=== PATIENT | female | born 1930 | race African-American/Black ===

== ENCOUNTER 2017-12-04 06:57 | Outpatient (CLI) | payer MEDICARE ==
[2017-12-04] MEDS ORDERED: ISOVUE-370 76%-LOCM 1 ML ONE (15:18)
== END 2017-12-04 06:58 | disposition home or self-care (01) ==
LOC: BICCT 06:57
PROVIDERS: ATTEND Internal Medicine
DX: R59.0 Localized enlarged lymph nodes (principal); J34.89 Other specified disorders of nose and nasal sinuses
CPT/HCPCS: 70491; 82565

== ENCOUNTER 2017-12-22 07:11 | Outpatient (CLI) | payer MEDICARE | END 2017-12-22 07:12 | disposition home or self-care (01) | LOC: BICRAD 07:11 | PROVIDERS: ATTEND Internal Medicine | DX: R59.0 Localized enlarged lymph nodes (principal); J44.9 Chronic obstructive pulmonary disease, unspecified; I51.7 Cardiomegaly | CPT/HCPCS: 71046 ==

== ENCOUNTER 2018-12-15 10:58 | Emergency (ER) | payer MEDICARE ==
--- NOTE | 2018-12-15 11:38 | RAD ---
XR Hip Rt 2-3 View History: Pain after fall Comparison: None. Findings: No acute fracture or malalignment of the right femoral head and neck. Cortical regularity o f the right superior pubic ramus. Impression: Subtle cortical irregularity of the right superior pubic ramus on the oblique view. Pelvi c radiograph recommended.
--- NOTE | 2018-12-15 12:08 | CT ---
EXAM: CT Pelvis WO Con DATE: 12/15/2018 11:42 AM INDICATION: Fall with right hip pain COMPARISON: Right hip radiograph dated December 15, 2018 FINDING: There is a nondisplaced right inferior pubic ramus fracture. No additional acute pelvic fra cture is evident. There is diffuse osteopenia. There is scattered degenerative change involving both hips and SI joints. There are small scattered bone islands seen within the pelvis. Intrapelvic c ontents demonstrates scattered colonic diverticula. Visualized bladder, rectum and perirectal soft tissues are within normal limits. There are moderate to severe calcifications involving the pelvic va sculature. There is a fat-containing umbilical hernia. IMPRESSION:Nondisplaced right inferior pubic ramus fracture. No additional disc displaced fractures e vident.
== END 2018-12-15 12:50 | disposition home or self-care (01) ==
LOC: ERS 10:58
DX: S32.591A Other specified fracture of right pubis, initial encounter for closed fracture (principal); E78.5 Hyperlipidemia, unspecified; I10 Essential (primary) hypertension; W18.30XA Fall on same level, unspecified, initial encounter
CPT/HCPCS: 72192

== ENCOUNTER 2020-05-10 17:41 | Inpatient (IN) | payer MEDICARE ==
[2020-05-10 18:44] LABS: #Eosinphils 0.1 thou/uL (0.0-0.7); #Lymphocytes 1.6 thou/uL (1.20-3.40); #Monocytes 0.9 thou/uL (0.11-0.59); #Neutrophils 5.2 thou/uL (1.40-6.50); %Basophils 0.2 % (0.0-1.0); %Lymphocytes 20.6 % (21.0-51.0); %Monocytes 11.1 % (0.0-10.0); %Neutrophils 67.1 % (42.0-75.0); Mean Corpuscular HGB CONC 33.1 g/dL (32.0-36.0); Mean Corpuscular Hemoglobin 32.6 pg (27.0-31.0); Mean Corpuscular Volume 98.4 fL (78.0-98.0); Mean Platelet Volume 7.2 fL (7.4-10.4); Platelet Count 300 thou/uL (130-400); RBC Distribution Width 13.3 % (11.5-14.5); Red Blood Cell (RBC) Count 3.38 mill/uL (4.20-5.40); White Blood Cell (WBC) Count 7.7 thou/uL (4.8-10.8)
[2020-05-10 19:32] LABS: Albumin 3.7 g/dL (3.4-4.8)
[2020-05-10 19:34] LABS: Calcium 8.5 mg/dL (7.8-10.44); Chloride 102 mmol/L (98-107); Potassium 3.5 mmol/L (3.5-5.1); Sodium 139 mmol/L (136-145)
[2020-05-10 19:35] LABS: Globulin 2.9 g/dL (2.4-3.5); Glucose 150 mg/dL (83-110); Protein, Total 6.6 g/dL (6.0-8.3)
[2020-05-10 19:36] LABS: Anion Gap 17 mmol/L (10-20); Carbon Dioxide 24 mmol/L (23-31)
[2020-05-10 19:37] LABS: Bilirubin, Total 0.4 mg/dL (0.2-1.2)
[2020-05-10 19:38] LABS: Alkaline Phosphatase 63 U/L (40-110); Calc. Creatinine Clearance 0 mL/min (70-130)
[2020-05-10 19:39] LABS: BUN (Urea Nitrogen) 24 mg/dL (9.8-20.1)
[2020-05-10 19:40] LABS: AST (SGOT) 17 U/L (5-34)
[2020-05-10 19:41] LABS: ALT (SGPT) 8 U/L (8-55)
--- NOTE | 2020-05-10 20:05 | CT ---
Head CT without contrast 05/10/2020: COMPARISON: 05/20/2015 HISTORY: Syncope TECHNIQUE: Axial CT imaging at 5 mm intervals from vertex through skull base without contrast FINDINGS: There is partial opacification of the right maxillary sinus with secretions of various dens ity. The imaged paranasal sinuses and mastoid air cells appear grossly unremarkable otherwise. There is no displaced calvarial fracture, intracranial hemorrhage, midline shift, or mass effect. The re is periventricular and deep white matter hypodensity, evidence of small vessel disease. No intracranial hemorrhage, midline shift,, or mass effect. IMPRESSION: Small vessel disease with no evidence for intracranial hemorrhage or displaced calvarial fracture.
[2020-05-10 21:28] LABS: Bacteria/HPF 4+ HPF (None Seen); Bilirubin Negative (Negative); Blood, Urine 2+ (Negative); Clarity Extra Turbid (Clear); Glucose, Urine (Dipstick) Normal (Negative); Ketone, Urine Negative (Negative); Leukocyte 500 Leu/uL (Negative); Nitrite 1+ (Negative); Protein, Urine (Dipstick) 10 mg/dL (Neg-Trace); Specific Gravity, Urine 1.013 (1.002-1.036); Urobilinogen Normal mg/dL (Less than 2); WBC/HPF 21-50 HPF (0-3); pH, Urine 6.5 (5.0-9.0)
[2020-05-10 21:52] LABS: Troponin I Less than 0.010 ng/mL (< 0.028)
[2020-05-10 23:45] VITALS: BMI 25.4
[2020-05-11] MEDS ORDERED: hydrALAZINE 20 MG/ML VIAL SLOW IVP PRN (01:04)
[2020-05-11] MEDS ORDERED: Promethazine HCl 12.5 MG in Sodium Chloride 0.9% 50 ML IVPB PRN (01:04)
[2020-05-11] MEDS ORDERED: Guaifenesin DM 100-10/5 ML UDCUP PO PRN (01:04)
[2020-05-11] MEDS ORDERED: Ondansetron PF 4 MG/2 ML Vial IVP PRN (01:04)
[2020-05-11] MEDS ORDERED: Labetalol HCl 100 MG/20 ML VIAL SLOW IVP PRN (01:04)
[2020-05-11] MEDS ORDERED: cloNIDine 0.1 MG TAB PO PRN (01:04)
[2020-05-11] MEDS ORDERED: HYDROcodone/Acetaminophen 5/325 mg Tablet PO PRN (01:04)
[2020-05-11] MEDS ORDERED: Acetaminophen 325 MG TAB PO PRN (01:04)
[2020-05-11] MEDS ORDERED: Dextrose 50% Abboject 50 ML SYRINGE SLOW IVP PRN (01:07)
[2020-05-11] MEDS ORDERED: HumaLOG 300 UNITS/3 ML VIAL SC PRN (01:07)
[2020-05-11] MEDS ORDERED: Dextrose 5% in Water 1,000 ML IV PRN (01:07)
--- NOTE | 2020-05-11 01:10 | PDOC.HHP ---
Hospitalist HPI - History of Present Illness Presyncope History of Present Illness: Patient is an 89 year old female with PMH HTN, HLD, atrial fibrillation who presents to ED for presyncopal episode at home. She reports dizziness and almost losing consciousness after using restroom. She has history of afib and sees Dr De La Cruz, takes diltiazem amongst other medications. In ED, vitals significant for HR in 50s, EKG w/ afib. slow response in 50s. Patient labs unremarkable. patient denies any further symptoms, no chest pain/shortness of breath/dizziness. patient to be admitted for syncope and bradycardia workup. Of note, UA positive in ED. CT head negative for acute IC process. Hospitalist ROS - Review of Systems Constitutional: reports: weakness, malaise. denies: fever, chills, sweats, other Eyes: denies: pain, vision change, conjunctivae inflammation, eyelid inflammation, redness, other ENT: denies: ear pain, ear discharge, nose pain, nose discharge, nose congestion, mouth pain, mouth swelling, throat pain, throat swelling, other Respiratory: denies: cough, dry, shortness of breath, hemoptysis, SOB with excertion, pleuritic pain, sputum, wheezing, other Cardiovascular: denies: chest pain, palpitations, orthopnea, paroxysmal noc. dyspnea, edema, light headedness, other Gastrointestinal: denies: nausea, vomiting, abdominal pain, diarrhea, constipation, melena, hematochezia, other Genitourinary: denies: dysuria, frequency, incontinence, hematuria, retention, other Musculoskeletal: denies: neck pain, shoulder pain, arm pain, back pain, hand eileen n, leg pain, foot pain, other Skin: denies: rash, lesions, jaswant, bruising, other Neurological: denies: weakness, numbness, incoordination, change in speech, confusion, seizures, other All other systems reviewed; all pertinent +/- noted in HPI/Subj - Medication Medications: VITAL SIGNS FriMay 10, 2020 17:56 NILSON [place] BP: 124/64 Pulse: 59 Resp: 19 Temp: 98.7 (Oral) Pain: 0 O2 sat: 98 on (Room Air) Time: 05/10/2020 17:56. Hospitalist History - Past Medical History Other Medical History: HTN, HLD, atrial fibrillation - Past Surgical History Past Surgical History: reports: no pertinent history - Family History Family History: reports: no pertinent history - Social History Smoking Status: Never smoker Alcohol: reports: None Drugs: reports: none - Exam General Appearance: NAD, awake alert Eye: PERRL, anicteric sclera ENT: normocephalic atraumatic, no oropharyngeal lesions, moist mucosa Neck: supple, symmetric, no JVD, no thyromegaly, no lymphadenopathy, no carotid bruit Heart: RRR, no murmur, no gallops, no rubs, normal peripheral pulses Respiratory: CTAB, no wheezes, no rales, no ronchi, normal chest expansion, no tachypnea, normal percussion Gastrointestinal: soft, non-tender, non-distended, normal bowel sounds, no palpable masses, no hepatomegaly, no splenomegaly, no bruit Extremities: no cyanosis, no clubbing, no edema Skin: normal turgor, no lesions, no rashes Neurological: cranial nerve grossly intact, normal sensation to touch, no weakness, no focal deficits, no new deficit Musculoskeletal: normal tone, normal strength, no muscle wasting Psychiatric: normal affect, normal behavior, A&O x 3 Hospitalist Results - Labs Result Diagrams: 05/10/20 18:10 05/10/20 18:10 Lab results: WBC 7.7 thou/uL (4.8-10.8) 05/10/20 18:10 Hgb 11.0 g/dL (12.0-16.0) L 05/10/20 18:10 Hct 33.2 % (36.0-47.0) L 05/10/20 18:10 MCV 98.4 fL (78.0-98.0) H 05/10/20 18:10 Plt Count 300 thou/uL (130-400) 05/10/20 18:10 Neutrophils % 67.1 % (42.0-75.0) 05/10/20 18:10 Sodium 139 mmol/L (136-145) 05/10/20 18:10 Potassium 3.5 mmol/L (3.5-5.1) 05/10/20 18:10 Chloride 102 mmol/L (98-107) 05/10/20 18:10 Carbon Dioxide 24 mmol/L (23-31) 05/10/20 18:10 BUN 24 mg/dL (9.8-20.1) H 05/10/20 18:10 Creatinine 1.29 mg/dL (0.6-1.1) H 05/10/20 18:10 Glucose 150 mg/dL (83-110) H 05/10/20 18:10 Calcium 8.5 mg/dL (7.8-10.44) 05/10/20 18:10 Total Bilirubin 0.4 mg/dL (0.2-1.2) 05/10/20 18:10 AST 17 U/L (5-34) 05/10/20 18:10 ALT 8 U/L (8-55) 05/10/20 18:10 Alkaline Phosphatase 63 U/L (40-110) 05/10/20 18:10 Troponin I Less than 0.010 ng/mL (< 0.028) 05/10/20 21:08 B-Natriuretic Peptide 262.9 pg/mL (0-100) H 05/10/20 18:10 Serum Total Protein 6.6 g/dL (6.0-8.3) 05/10/20 18:10 Albumin 3.7 g/dL (3.4-4.8) 05/10/20 18:10 Urine Ketones Negative mg/dL (Negative) 05/10/20 21:04 Urine Blood 2+ (Negative) A 05/10/20 21:04 Urine Nitrite 1+ (Negative) A 05/10/20 21:04 Ur Leukocyte Esterase 500 Shimon/uL (Negative) A 05/10/20 21:04 Urine RBC 11-20 HPF (0-3) A 05/10/20 21:04 Urine WBC 21-50 HPF (0-3) A 05/10/20 21:04 Ur Squamous Epith Cells 4-6 HPF (0-3) A 05/10/20 21:04 Urine Bacteria 4+ HPF (None Seen) A 05/10/20 21:04 Additional comment: CT Brain WO Con Observe DT: Wed May 10, 2020 19:[address] without contrast 05/10/2020: COMPARISON: 05/20/2015 HISTORY: Syncope TECHNIQUE: Axial CT imaging at 5 mm intervals from vertex through skull base without contrast FINDINGS: There is partial opacification of the right maxillary sinus with secretions of various dens ity. The imaged paranasal sinuses and mastoid air cells appear grossly unremarkable otherwise. There is no displaced calvarial fracture, intracranial hemorrhage, midline shift, or mass effect. The re is periventricular and deep white matter hypodensity, evidence of small vessel disease. No intracranial hemorrhage, midline shift,, or mass effect. IMPRESSION: Small vessel disease with no evidence for intracranial hemorrhage or displaced calvarial fracture. - EKG Interpretation EK LEAD EKG INTERPRETATION Heart rate 53 QTc 420 atrial fibrillation with slow response no evidence of Mobitz however evidence of high-grade interventricular block. I personally reviewed and agree with ED physician interpretation Hospitalist H&P A/P - Plan Plan: Patient is an 89 year old female with PMH HTN, HLD, atrial fibrillation who presents to ED for presyncopal episode at home. # presyncope # atrial fibrillation w/ bradycardia/slow ventricular return # UTI # metabolic encephalopathy dizziness and almost losing consciousness after using restroom. She has history of afib and sees Dr De La Cruz, takes diltiazem amongst other medications. In ED, vitals significant for HR in 50s, EKG w/ afib. slow response in 50s. Patient labs unremarkable. patient denies any further symptoms, no chest pain/shortness of breath/dizziness. patient to be admitted for syncope and bradycardia workup. Of note, UA positive in ED. CT head negative for acute IC process. - admit to floor - ceftriaxone, urine culture - resume home medications, hold diltiazem - consult Dr De La Cruz # HTN # HLD - resume home medications # LAMINE vs CKD - trend Cr daily # DVT/GI ppx
[2020-05-11] MEDS ORDERED: Electrolyte Replacement Protocol 1 EACH FS PRN (01:15)
[2020-05-11 01:18] LABS: Troponin I 0.014 ng/mL (< 0.028)
[2020-05-11] MEDS ORDERED: cefTRIAXone\\ROCEPHIN 1 GM in Sodium Chloride 0.9% 100 ML IVPB SCH (01:30)
[2020-05-11 01:40] LABS: SARS-CoV-2 MS2 Positive; SARS-CoV-2 N Gene Negative; SARS-CoV-2 S Gene Negative; SARS-CoV-2 by NAA Not Detected (NotDetected); SARS-CoV-2 orf1ab Negative
[2020-05-11] MEDS ORDERED: cefTRIAXone\\ROCEPHIN 1 GM VIAL ONE (04:47)
[2020-05-11] MEDS: cefTRIAXone\\ROCEPHIN 1 GM in Sodium Chloride 0.9% 100 ML IVPB SCH (04:52)
[2020-05-11 05:12] LABS: #Eosinphils 0.1 thou/uL (0.0-0.7); #Lymphocytes 1.8 thou/uL (1.20-3.40); #Monocytes 0.8 thou/uL (0.11-0.59); %Basophils 0.2 % (0.0-1.0); %Eosinophils 1.2 % (0.0-10.0); %Lymphocytes 23.6 % (21.0-51.0); %Monocytes 10.5 % (0.0-10.0); %Neutrophils 64.5 % (42.0-75.0); Hemoglobin 10.6 g/dL (12.0-16.0); Mean Corpuscular HGB CONC 32.7 g/dL (32.0-36.0); Mean Corpuscular Volume 97.8 fL (78.0-98.0); Platelet Count 291 thou/uL (130-400); RBC Distribution Width 13.2 % (11.5-14.5); White Blood Cell (WBC) Count 7.8 thou/uL (4.8-10.8)
[2020-05-11 05:35] LABS: Anion Gap 13 mmol/L (10-20); BUN (Urea Nitrogen) 25 mg/dL (9.8-20.1); Calc. Creatinine Clearance 44 mL/min (70-130); Calcium 8.6 mg/dL (7.8-10.44); Carbon Dioxide 26 mmol/L (23-31); Chloride 102 mmol/L (98-107); Glucose 102 mg/dL (83-110); Magnesium 2.1 mg/dL (1.6-2.6); Potassium 3.7 mmol/L (3.5-5.1); Sodium 137 mmol/L (136-145)
[2020-05-11] MEDS ORDERED: Potassium Chloride 20 MEQ TAB PO SCH (05:45)
[2020-05-11] MEDS ORDERED: Potassium Chloride 20 MEQ TAB ONE (05:50)
[2020-05-11] MEDS: Losartan 25 MG TAB PO SCH (08:23)
[2020-05-11] MEDS ORDERED: Famotidine 20 MG TAB ONE (08:25)
[2020-05-11] MEDS: Polyethylene Glycol 3350 17 GM Packet PO SCH (08:27)
[2020-05-11] MEDS ORDERED: FLU VACC QS2020-21(65YR UP)/PF 240 MCG/0.7 ML SYRINGE IM ONE (09:00)
[2020-05-11] MEDS ORDERED: Famotidine 20 MG TAB PO SCH (09:00)
--- NOTE | 2020-05-11 11:29 | CON ---
DATE OF CONSULTATION: 05/11/2020 REASON FOR CONSULTATION: Presyncope and atrial fibrillation. PRIMARY 4 H YOUTH DEVELOPMENT SPECIALIST: Dr. Jack De La Cruz. HISTORY OF PRESENT ILLNESS: Ms. Horan is a very pleasant 89-year-old female, who comes to the hospital for presyncopal episode. She was at home, went to the bathroom and felt very lightheaded like she was going to pass out. She was able to catch herself and not injure herself, and decided to come in for further evaluation. Initially in the ER, her heart rate was about 59, however, in atrial fibrillation with slow ventricular rate. EKG was done. Heart rate was 53 on her EKG. She has followed up with Dr. De La Cruz, sees him once a year for her chronic atrial fibrillation and high blood pressure, which has been pretty much rate controlled on anticoagulation with Pradaxa. She is very good with her medications as well. PAST MEDICAL HISTORY: 1. Chronic atrial fibrillation. 2. Hypertension. 3. Chronic anticoagulation with Pradaxa. 4. Hyperlipidemia. SURGICAL HISTORY: None pertinent. FAMILY HISTORY: Noncontributory. SOCIAL HISTORY: No alcohol, tobacco, or drugs. OUTPATIENT MEDICATIONS: 1. Pradaxa 150 mg twice a day. 2. Losartan with hydrochlorothiazide 50/12.5 mg a day. 3. Diltiazem 120 mg extended release capsule. ALLERGIES: NO KNOWN DRUG ALLERGIES. REVIEW OF SYSTEMS: A 12-point review of systems was done and was found to be negative other than stated in the history of present illness. PHYSICAL EXAMINATION: VITAL SIGNS: Temperature 98.7, pulse 66, respiratory rate 18, sat 98% on room air, blood pressure 154/94. GENERAL: Awake, alert, oriented x3. No distress. HEENT: Normocephalic, atraumatic. NECK: Supple. LUNGS: Clear. CARDIOVASCULAR: S1 and S2. No S3 or S4. There is a grade 2/6 systolic murmur at the right upper sternal border. ABDOMEN: Soft. Positive bowel sounds. EXTREMITIES: No edema whatsoever. SKIN: Warm and dry. LABORATORY DATA: Laboratory work was reviewed. CBC with a white count of 7.7, hemoglobin of 11.0, hematocrit of 33, platelet count of 300. Chemistry was unremarkable except for a glucose of 134. Troponin was negative x3. BNP was 262. UA was a turbid urine, 2+ blood, 1+ nitrites, 21 to 50 white cells, and only 11 to 20 red cells, 4+ bacteria. COVID-19 PCR serology was not detected. CT of the brain was reviewed and was unremarkable. ASSESSMENT: 1. Presyncope. 2. Chronic atrial fibrillation with slow ventricular response. 3. Bradycardia, improved after stopping diltiazem. 4. Chronic anticoagulation with Pradaxa. 5. Hypertension. PLAN: 1. I agree with holding diltiazem indefinitely. Unclear as to whether this was related to a bradycardic episode at 53 beats per minute. In the ER, she felt just fine. She may have dropped a lot more when she was in the bathroom. However, at this point, we do not have any evidence of any worse bradycardia or long pauses. Still no findings to suggest a need for pacemaker. We would recommend stopping diltiazem indefinitely. Would keep her overnight and continue antibiotics for possible urinary tract infection. 2. We will need to monitor as an outpatient on discharge. 3. Continue Pradaxa for stroke prophylaxis. Thank you for letting us to participate in the care of your patient. Dr. De La Cruz, her primary caving guide will follow up in the morning. Job ID: [id number]
[2020-05-11] MEDS ORDERED: Enoxaparin Sodium 40 MG/0.4 ML SYRINGE SC SCH (21:00)
[2020-05-12] MEDS: cefTRIAXone\\ROCEPHIN 1 GM in Sodium Chloride 0.9% 100 ML IVPB SCH (03:15)
[2020-05-12 04:53] LABS: #Eosinphils 0.1 thou/uL (0.0-0.7); #Lymphocytes 1.8 thou/uL (1.20-3.40); #Monocytes 0.7 thou/uL (0.11-0.59); #Neutrophils 4.1 thou/uL (1.40-6.50); %Basophils 0.5 % (0.0-1.0); %Eosinophils 1.6 % (0.0-10.0); %Lymphocytes 26.4 % (21.0-51.0); %Monocytes 10.4 % (0.0-10.0); %Neutrophils 61.2 % (42.0-75.0); Hemoglobin 10.8 g/dL (12.0-16.0); Mean Corpuscular HGB CONC 32.9 g/dL (32.0-36.0); Mean Corpuscular Hemoglobin 32.2 pg (27.0-31.0); Mean Corpuscular Volume 97.7 fL (78.0-98.0); Mean Platelet Volume 7.2 fL (7.4-10.4); Platelet Count 293 thou/uL (130-400); RBC Distribution Width 13.2 % (11.5-14.5); Red Blood Cell (RBC) Count 3.35 mill/uL (4.20-5.40); White Blood Cell (WBC) Count 6.7 thou/uL (4.8-10.8)
[2020-05-12 04:55] LABS: Anion Gap 13 mmol/L (10-20); BUN (Urea Nitrogen) 24 mg/dL (9.8-20.1); Calc. Creatinine Clearance 45 mL/min (70-130); Calcium 8.2 mg/dL (7.8-10.44); Carbon Dioxide 27 mmol/L (23-31); Chloride 104 mmol/L (98-107); Glucose 99 mg/dL (83-110); Magnesium 2.1 mg/dL (1.6-2.6); Sodium 140 mmol/L (136-145)
[2020-05-12] MEDS: Losartan 25 MG TAB PO SCH (08:16)
[2020-05-12] MEDS: Polyethylene Glycol 3350 17 GM Packet PO SCH (08:17)
--- NOTE | 2020-05-12 08:45 | PRG ---
DATE OF SERVICE: 05/12/2020 SUBJECTIVE: Ms. Horan is doing well. No current complaints. Heart rate has been stable. Cardizem has been discontinued. OBJECTIVE: VITAL SIGNS: Blood pressure 135/94, pulse 90, temperature 98.8. LUNGS: Clear to auscultation. HEART: Irregularly irregular. ABDOMEN: Soft, nontender, nondistended. EXTREMITIES: No edema. IMPRESSION: 1. Lightheadedness and presyncope. 2. Chronic atrial fibrillation. RECOMMENDATIONS: 1. Resume anticoagulation therapy. 2. Hold Cardizem. 3. Recommend a 3-week event recorder to assess for any significant dysrhythmias. From my standpoint, the patient is cleared for discharge. We will leave it at the discretion of the primary team. We will recommend following up with Ms. Horan in the next 3 to 4 weeks. Job ID: [id number]
[2020-05-12] MEDS ORDERED: Famotidine 20 MG TAB PO SCH (09:00)
[2020-05-12 11:55] VITALS: BP 125/71; TEMP 98.5
--- NOTE | 2020-05-12 13:12 | PDOC.DS.DS ---
Provider - Provider Date of Admission: 05/10/20 20:03 Date of Discharge: 05/12/20 Admitting Provider: Kingsley White MD Consultations: Cardiology Primary Care Physician: Ethel Lundberg MD Course - Hospital Course Hospital Course: 89-year-old -[place] female with a past medical history of atrial fibrillation on Pradaxa. She is well-known to Dr. De La Cruz from cardiology services. She was admitted with presyncopal episode. There was concern for bradycardic events on telemetry. Her diltiazem was discontinued. She did well throughout this hospitalization. Her mental status at baseline and she has been cleared by physical therapy. Additional work-up revealed that she had a gram- negative UTI. She has been on ceftriaxone for last 2 days. Resuscitation Status: 05/11/20 01:04 Resuscitation Status Routine Resuscitation Status: FULL: Full Resuscitation - Labs Lab Results: 05/12/20 04:04 05/12/20 04:04 Abnormal Lab Results - Last 48 hrs 05/10/20 18:10: RBC 3.38 L, Hgb 11.0 L, Hct 33.2 L, MCV 98.4 H, MCH 32.6 H, MPV 7.2 L, Lymphocytes % 20.6 L, Monocytes % 11.1 H, Monocytes # 0.9 H 05/10/20 18:10: BUN 24 H, Creatinine 1.29 H 05/10/20 18:10: B-Natriuretic Peptide 262.9 H 05/10/20 21:04: Urine Clarity Extra Turbid A, Urine Blood 2+ A, Urine Nitrite 1+ A, Ur Leukocyte Esterase 500 A, Urine RBC 11-20 A, Urine WBC 21-50 A, Ur Squamous Epith Cells 4-6 A, Urine Bacteria 4+ A 05/11/20 04:46: BUN 25 H 05/11/20 04:46: RBC 3.30 L, Hgb 10.6 L, Hct 32.3 L, MCH 32.0 H, MPV 7.0 L, Monocytes % 10.5 H, Monocytes # 0.8 H 05/12/20 04:04: BUN 24 H 05/12/20 04:04: RBC 3.35 L, Hgb 10.8 L, Hct 32.8 L, MCH 32.2 H, MPV 7.2 L, Monocytes % 10.4 H, Monocytes # 0.7 H Microbiology - Entire Visit 05/10/20 21:04 Urine clean catch Urine Culture - Preliminary Gram Negative Russell - Physical Exam Vitals: Vital Signs (12 hours) Temp Pulse Resp BP Pulse Ox 05/12/20 11:54 98.5 F 82 16 125/71 95 05/12/20 08:08 98.3 F 97 12 135/94 H 95 05/12/20 03:18 98.8 F 90 18 134/70 94 L Weight Weight 167 lb 14.4 oz Physical Exam: The patient was seen and examined on the day of discharge. General: Not in acute distress. Alert and awake HEENT: Head atraumatic, normocephalic. EOM intact Pulmonary: Lungs are clear to auscultation bilaterally CVS: Irregular heart rate Abdomen: Soft, nontender, nondistended Extremities: Without edema. Good range of motion in all extremities Skin: Warm and well perfused Psych: Mood and affect appropriate. Neuro: Grossly intact Problem - Discharge Plan Assessment: As per hospital course Plan - Discharge Medications Home Medications: Medication Instructions Recorded Confirmed Type Dabigatran [Pradaxa] 150 mg PO BID 05/20/15 05/10/20 History Losartan Potassium [Cozaar] 50 mg PO DAILY 05/20/15 05/10/20 History metFORMIN [Glucophage] 500 mg PO QA- 05/10/20 05/10/20 History Losartan [Cozaar] 50 mg PO DAILY tab 05/12/20 Rx Allergies: No Known Drug Allergies Allergy (Verified 05/20/15 21:32) - Discharge Instructions Activity:: Activity as Tolerated - Follow up Plan Referrals: Ethel Lundberg MD [Primary Care Provider] - Disposition: HOME Quality - Care Measures CORE MEASURES:: N/A - Stroke/TIA Did you prescribe antithrombotic therapy?: No Specify reason for no DC antithrombotic therapy: Treatment not indicated Did you prescribe anticoagulant for A Fib/Flutter?: Yes
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
--- NOTE | 2020-05-13 11:19 | EKG ---
Test Reason : Blood Pressure : / mmHG Vent. Rate : 053 BPM Atrial Rate : 033 BPM P-R Int : 000 ms QRS Dur : 090 ms QT Int : 448 ms P-R-T Axes : 000 -25 182 degrees QTc Int : 420 ms Atrial flutter with variable block with slow ventricular response Anteroseptal infarct , age undetermined Abnormal ECG Confirmed by GAGAN DAVIS ([id number]), managing editor KARTIK FIERRO ([id number]) on 05/13/2020 11:19:10 AM Referred By: Confirmed By:GAGAN DAVIS
--- NOTE | 2020-05-15 06:40 | PQF ---
CLINICAL DOCUMENTATION CLARIFICATION FORM: Dear : Prince Nakia Date / Time: 05/15/20 06:39 Please exercise your independent, professional judgment in responding to the clarification form. Clinical indicators are provided on the bottom of this form for your review Please check appropriate box(es): Syncope Due to: [x] Bradycardia [ ] LAMINE [ ] UTI [ ] Other diagnosis, please specify [ ] Unable to determine Physician Signature: Date/Time: For continuity of documentation, please document condition throughout progress notes and discharge summary. Thank You. To be completed by CDI/Coding staff for physician review: Present Clinical Indicators - Signs / Symptoms / Labs Results and Location in Medical Record [x] Admitted with presyncopal episode DS 05/12 [x] concern for bradycardia events DS 05/12 [x] lightheadness PN 05/12 [x] Pulse 05/10=66 05/11=73 05/12=90 Vital Signs 05/10 [x] WBC: 05/10=7.7 05/11=7.8 05/12=6.7 Laboratory 05/10 [x] Urine culture: gram negative terri Laboratory 05/10 [x] BUN=24 Creatinine=1.29 GFR=47 Laboratory 05/10 Present Risk Factors Results and Location in Medical Record [x] 89 years old female DS 05/12 [x] Afib DS 05/12 [x] UTI DS 05/12 [x] LAMINE HP 05/11 [x] CKD HP 05/11 Present Treatments Results and Location in Medical Record [x] IVF JUN 26 [x] Rocephin 1gm IV JUN 26 [x] Cardiology Consult Consult 05/11 CDS/Quality Coordinator Signature: Gal Rodrigez Phone #: [phone] Date/Time: 05/15/20 This is a permanent part of the Medical Record [facility]
== END 2020-05-12 14:38 | disposition home or self-care (01) | DRG 308 ==
LOC: ERS 17:41 → ERHOLD 20:03 → OBSVTOIN 20:03 → 2NO 05-11 08:56
PROVIDERS: ADMIT Internal Medicine; ATTEND Internal Medicine
DX: R00.1 Bradycardia, unspecified (principal); G93.41 Metabolic encephalopathy; N39.0 Urinary tract infection, site not specified; N17.9 Acute kidney failure, unspecified; I48.20 Chronic atrial fibrillation, unspecified; Z20.822 Contact with and (suspected) exposure to COVID-19; E78.5 Hyperlipidemia, unspecified; I12.9 Hypertensive chronic kidney disease with stage 1 through stage 4 chronic kidney disease, or unspecified chronic kidney disease; B96.89 Other specified bacterial agents as the cause of diseases classified elsewhere; Z79.899 Other long term (current) drug therapy
CPT/HCPCS: 36415; 36416; 70450; 80048; 80053; 81003; 81015; 83735; 83880; 84484; 85025; 87086; 87635; 93005; 96374; G0378; J0696; J1650; J3490; U0003; U0005